=== PATIENT | male | born 1990 | race Hispanic/Latino ===

== ENCOUNTER 2018-08-03 18:47 | Emergency (ER) | payer OTHER ==
[2018-08-03] MEDS ORDERED: IBUPROFEN 600 MG TABLET ONE (19:10)
== END 2018-08-03 19:36 | disposition home or self-care (01) ==
LOC: EDH 18:47
DX: S63.592A Other specified sprain of left wrist, initial encounter (principal); Z90.49 Acquired absence of other specified parts of digestive tract; W10.8XXA Fall (on) (from) other stairs and steps, initial encounter; Y93.89 Activity, other specified; Y92.89 Other specified places as the place of occurrence of the external cause; Y99.8 Other external cause status
CPT/HCPCS: 73110

== ENCOUNTER 2019-05-25 16:06 | Emergency (ER) | payer OTHER ==
[2019-05-25] MEDS ORDERED: IBUPROFEN 600 MG TABLET ONE (16:31)
[2019-05-25] MEDS ORDERED: ACETAMINOPHEN EXTRA STRENGTH 500 MG TABLET ONE (16:31)
[2019-05-25 17:28] LABS: RAPID GROUP A STREP NEGATIVE (NEGATIVE)
== END 2019-05-25 18:21 | disposition home or self-care (01) ==
LOC: EDH 16:06
DX: J09.X2 Influenza due to identified novel influenza A virus with other respiratory manifestations (principal)
CPT/HCPCS: 87804; 87880

== ENCOUNTER 2019-12-28 10:40 | Emergency (ER) | payer OTHER ==
[2019-12-28 11:16] LABS: CREATININE 1.2 mg/dL (0.5-1.5); POTASSIUM 4.3 mmol/L (3.5-5.1)
[2019-12-28 11:21] LABS: ALBUMIN 4.2 g/dL (3.5-5.0); BASOPHILS % (AUTO) 0.6 % (0.0-5.0); BILIRUBIN,TOTAL 0.4 mg/dL (0.2-1.0); HEMATOCRIT 43.8 % (42-54); LYMPHOCYTES % (AUTO) 42.7 % (21.0-51.0); MEAN CORPUSCULAR HEMOGLOBIN 28.3 pg (27.0-33.0); MEAN CORPUSCULAR HGB CONC 33.8 g/dL (32.0-36.0); MEAN CORPUSCULAR VOLUME 83.7 fL (79-99); MONOCYTES % (AUTO) 6.8 % (3.0-13.0); NEUTROPHILS % (AUTO) 45.6 % (40.0-77.0); PLATELET COUNT (AUTO) 272 K/uL (130-400); RED BLOOD CELL COUNT(AUTO) 5.23 MIL/uL (4.50-6.20); RED CELL DISTRIBUTION WIDTH 12.8 % (11.0-15.5); TOTAL PROTEIN, SERUM 7.7 g/dL (6.0-8.3); WHITE BLOOD COUNT (AUTO) 6.5 K/uL (4.8-10.8)
[2019-12-28] MEDS ORDERED: CYCLOBENZAPRINE HCL 10 MG TABLET ONE (11:36)
[2019-12-28 12:30] LABS: APPEARANCE,URINE Clear (CLEAR); BILIRUBIN,URINE Negative (NEGATIVE); COLOR,URINE Yellow (YELLOW); GLUCOSE, URINE (UA) Negative (NEGATIVE); KETONES,URINE Negative (NEGATIVE); LEUKOCYTE ESTERASE ,URINE Negative (NEGATIVE); NITRATE,URINE Negative (NEGATIVE); OCCULT BLOOD,URINE Negative (NEGATIVE); PROTEIN,URINE Trace mg/dL (NEGATIVE); UROBILINOGEN,URINE 0.2 mg/dL (0.2-1.0)
[2019-12-28 12:42] LABS: BACTERIA,URINE Rare /HPF (None Seen); RBC,URINE 0-1 /HPF (0-1); SQUAMOUS EPITHELIAL CELL,UR Rare /HPF (0-2); WBC,URINE 0-1 /HPF (0-1)
[2019-12-28] MEDS ORDERED: ACETAMINOPHEN 325 MG TAB ONE (13:06)
== END 2019-12-28 13:26 | disposition home or self-care (01) ==
LOC: EDH 10:40
DX: S39.012A Strain of muscle, fascia and tendon of lower back, initial encounter (principal); Z90.49 Acquired absence of other specified parts of digestive tract; Z87.891 Personal history of nicotine dependence; X58.XXXA Exposure to other specified factors, initial encounter; Y93.89 Activity, other specified; Y92.89 Other specified places as the place of occurrence of the external cause; Y99.8 Other external cause status
CPT/HCPCS: 36415; 80053; 81001; 82150; 83690; 85025

== ENCOUNTER 2023-12-04 03:37 | Emergency (ER) | payer OTHER, SELFPAY ==
[~2023-12-04] VITALS: Ht 175.3 cm; Wt 155.6 kg
[2023-12-04] MEDS: ACETAMINOPHEN 500 MG TABLET PO ONE (04:31)
[2023-12-04 04:37] LABS: RAPID GROUP A STREP negative (NEGATIVE)
[2023-12-04 04:47] LABS: INFLUENZA TYPE A Negative For Type A (NEGATIVE); INFLUENZA TYPE B Negative For Type B (NEGATIVE)
[2023-12-04 04:49] LABS: SARS-CoV-2, RNA, NAAT POSITIVE SARS CoV-2 (NEGATIVE)
[2023-12-04] MEDS ORDERED: BENZ-39 PO (04:52)
[2023-12-04] MEDS ORDERED: PSEU-221 PO (04:52)
[2023-12-04 05:09] VITALS: BP 154/72; PULSE 91; RESP 18; O2SAT 97
== END 2023-12-04 05:12 | disposition home or self-care (01) ==
LOC: EDH 03:37
DX: U07.1 COVID-19 (principal); E11.9 Type 2 diabetes mellitus without complications; Z90.49 Acquired absence of other specified parts of digestive tract
CPT/HCPCS: 87635; 87804; 87880